=== PATIENT | male | born 1985 | race Caucasian/White ===

== ENCOUNTER 2019-04-09 16:04 | Emergency (ER) | payer OTHER ==
[~2019-04-09] VITALS: Ht 165.1 cm; Wt 82.8 kg
[2019-04-09] MEDS: METOCLOPRAMIDE HCL 10 MG/2 ML VIAL. IVP ONE (16:15)
[2019-04-09] MEDS: IV NORMAL SALINE 1,000ML 1,000 ML IV ONE (16:15)
[2019-04-09] MEDS: KETOROLAC 15 MG/ML VIAL. IVP ONE (16:15)
--- NOTE | 2019-04-09 16:24 | PHYS DOC ---
Past History Past Medical History: Anxiety, Depression, GERD, Kidney Stones, Seizure, Other Additional Past Medical Histor: PTSD Past Surgical History: Other Additional Past Surgical Histo: Right kidney Smoking: Cigarettes Alcohol Use: Rarely Drug Use: None Adult General Chief Complaint Chief Complaint: FLANK PAIN HPI HPI Patient is a 33-year-old male with a past medical history of depression, chronic low back pain, and kidney stones and is presenting to the emergency department with chief complaint of right lower quadrant abdominal pain and right flank pain. Patient states that a couple hours ago he began to have right lower quadrant abdominal pain that then began to radiate to his right lower back. Patient denies any nausea, vomiting, constipation, diarrhea, changes in urine, dysuria, and fevers at home. Patient states that he has a history of kidney stones that were treated with lithotripsy. Patient states that he has not noticed anything that makes the pain better or worse, he has not tried anything at home for the pain. Patient denies any history of cholecystectomy or appendectomy. He denies any trauma. Review of Systems Review of Systems Constitutional: Denies fever or chills Eyes: Denies redness or eye pain HENT: Denies nasal congestion or sore throat Respiratory: Denies cough or shortness of breath Cardiovascular: Denies chest pain or palpitations GI: Denies nausea or vomiting; reports abdominal pain : Denies dysuria or hematuria Musculoskeletal: Denies joint pain, reports back pain Integument: Denies rash or skin lesions Neurologic: Denies headache, focal weakness or sensory changes Complete systems were reviewed and found to be within normal limits, except as documented in this note. Current Medications Current Medications Current Medications Medications (Trade) Dose Ordered Sig/Chayo Start Time Stop Time Status Last Admin Dose Admin Ketorolac Tromethamine (Toradol 15mg Vial) 15 mg 1X ONCE 04/09/19 16:15 04/09/19 16:16 UNV Metoclopramide HCl (Reglan Vial) 10 mg 1X ONCE 04/09/19 16:15 04/09/19 16:16 UNV Sodium Chloride 1,000 ml @ 1,000 mls/hr 1X ONCE 04/09/19 16:15 04/09/19 17:14 UNV Physical Exam Physical Exam Constitutional: Well developed, well nourished, no acute distress, non-toxic appearance HENT: Normocephalic, atraumatic, oropharynx moist Eyes: Conjunctiva normal, no discharge Neck: Normal range of motion, no tenderness, supple Cardiovascular: Heart rate normal, regular rhythm Lungs & Thorax: Bilateral breath sounds clear to auscultation, no wheezing Abdomen: Soft, mild tenderness to palpation in the right lower quadrant, negative heeltap, negative Rovsing's Skin: Warm, dry, no erythema, no rash Back: No midline tenderness, mild tenderness to the right flank palpation Extremities: No tenderness, ROM intact, no edema Neurologic: Alert and oriented X 3, no focal deficits noted Psychologic: Affect normal, judgement normal Current Patient Data Vital Signs Vital Signs Date Time Temp Pulse Resp B/P (MAP) Pulse Ox O2 Delivery O2 Flow Rate FiO2 04/09/19 16:12 98.1 76 16 98 Room Air EKG EKG [] Radiology/Procedures Radiology/Procedures PROCEDURE: CT ABDOMEN PELVIS WO CONTRAST CT Abdomen and Pelvis without contrast History: Right flank pain Technique: Noncontrast CT imaging was performed of the abdomen and pelvis. Multiplanar images are reviewed. Exposure: One or more of the following individualized dose reduction techniques were utilized for this examination: 1. Automated exposure control 2. Adjustment of the mA and/or kV according to patient size 3. Use of iterative reconstruction technique. Comparison: None Findings: There is mild right hydronephrosis is. There is 0.6-0.7 cm calculus at the distal aspect of the right ureteropelvic junction. There is no renal calculus on either side. There is no left hydronephrosis. Accurate evaluation of abdominal visceral organs is limited without intravenous contrast. There is no obvious focal abnormality of the spleen, liver, or pancreas. There is diffuse hepatic steatosis. Gallbladder is present without obvious intraluminal abnormality by CT. There is no adrenal nodularity. Accurate evaluation of bowel is limited without oral contrast. There is no significant free air, free fluid, bowel dilatation. Normal caliber appendix is visualized without adjacent inflammatory-type change. There is mild sigmoid diverticulosis, no associated inflammatory-type change. Impression: 1. There is mild right hydronephrosis, 0.6-0.7 cm calculus in the distal aspect of the right ureteropelvic junction. 2. There is hepatic steatosis. 3. There is mild sigmoid diverticulosis. Electronically signed by: Davi Willams MD (04/09/2019 4:50 PM) [id number] Course & Med Decision Making Course & Med Decision Making Pertinent Labs and Imaging studies reviewed. (See chart for details) Patient is a 33-year-old male with a past medical history of depression, chronic low back pain, and kidney stones this percent emergency department with chief complaint of right lower quadrant abdominal pain and right flank pain. Patient was seen and examined at bedside. Labs and imaging studies were ordered. Pain addressed. Abd/pelvis CT positive for 0.6-0.7cm stone in the right UPJ. Labs within normal limits Flomax and fluids given Discussed options with patient. Shared decision making utilized. Patient offered transfer to facility with urology coverage vs outpatient follow-up. Patient elected to be discharged home and will follow up with PCP and/or urology. Discussed findings and plan with patient and family, who acknowledge understanding and agreement. Dragon Disclaimer Dragon Disclaimer This electronic medical record was generated, in whole or in part, using a voice recognition dictation system. Departure Departure: Impression: Primary Impression: Kidney stone on right side Disposition: HOME, SELF-CARE Condition: STABLE Referrals: PCP,CHRIS (PCP) Patient Instructions: Kidney Stones, [id number] Scripts Tamsulosin Hcl (FLOMAX) 0.4 Mg Cap.er.24h 0.4 MG PO DAILY for Pain, #5 CAP.SR Prov: AMOR VALDIVIA DO 04/09/19 Hydrocodone Bit/Acetaminophen (HYDROCODONE-APAP 5-325 ) 1 Each Tablet 0.5-1 TAB PO PRN Q6HRS PRN for PAIN, #14 TAB 0 Refills Prov: AMOR VALDIVIA DO 04/09/19 Ondansetron (ONDANSETRON ODT) 4 Mg Tab.rapdis 1 TAB PO PRN Q6-8HRS PRN for NAUSEA, #16 TAB Prov: AMOR VALDIVIA DO 04/09/19 AMOR VALDIVIA DO Apr 09, 2019 16:24
[2019-04-09 16:40] LABS: BASO % 1 % (0-3); EOS # 0.2 x10^3/uL (0.0-0.7); EOS % 3 % (0-3); HEMATOCRIT 50.4 % (39.0-53.0); HEMOGLOBIN 17.3 g/dL (13.0-17.5); LYMPH # 1.7 x10^3/uL (1.0-4.8); LYMPH % 23 % (24-48); MEAN CORPUSCULAR HEMOGLOBIN 31 pg (25-35); MEAN CORPUSCULAR HGB CONC 34 g/dL (31-37); MEAN CORPUSCULAR VOLUME 91 fL (79-100); MONO # 0.7 x10^3/uL (0.0-1.1); MONO % 9 % (0-9); NEUT # 4.6 x10^3uL (1.8-7.7); NEUT % 64 % (31-73); PLATELET COUNT 254 x10^3/uL (140-400); RED BLOOD COUNT 5.53 x10^6/uL (4.30-5.70); RED CELL DISTRIBUTION WIDTH 13.3 % (11.5-14.5); WHITE BLOOD COUNT 7.2 x10^3/uL (4.0-11.0)
[2019-04-09 16:48] LABS: CALCIUM 8.7 mg/dL (8.5-10.1); CREATININE 0.8 mg/dL (0.7-1.3); GFR 112.8; POTASSIUM 4.6 mmol/L (3.5-5.1)
[2019-04-09 16:49] LABS: BILIRUBIN,URINE NEG (NEG); CLARITY,URINE CLEAR; COLOR,URINE YELLOW; GLUCOSE,URINE NEG (NEG)
[2019-04-09 16:50] LABS: BACTERIA,URINE 0 /HPF (0-FEW); HYALINE CASTS, URINE OCC /HPF; NITRITE,URINE NEG (NEG); SQUAMOUS EPITHELIAL CELL,UR OCC /LPF; UROBILINOGEN,URINE 0.2 mg/dL (0.2 mg/dL); WBC,URINE OCC /HPF (0-4)
[2019-04-09 16:53] LABS: ALBUMIN 3.9 g/dL (3.4-5.0); ALBUMIN/GLOBULIN RATIO 1.2 (1.0-1.7); MAGNESIUM 2.1 mg/dL (1.8-2.4); TOTAL BILIRUBIN 0.5 mg/dL (0.2-1.0); TOTAL PROTEIN 7.2 g/dL (6.4-8.2)
--- NOTE | 2019-04-09 16:53 | RAD ---
CT Abdomen and Pelvis without contrast History: Right flank pain Technique: Noncontrast CT imaging was performed of the abdomen and pelvis. Multiplanar images are reviewed. Exposure: One or more of the following individualized dose reduction techniques were utilized for this examination: 1. Automated exposure control 2. Adjustment of the mA and/or kV according to patient size 3. Use of iterative reconstruction technique. Comparison: None Findings: There is mild right hydronephrosis is. There is 0.6-0.7 cm calculus at the distal aspect of the right ureteropelvic junction. There is no renal calculus on either side. There is no left hydronephrosis. Accurate evaluation of abdominal visceral organs is limited without intravenous contrast. There is no obvious focal abnormality of the spleen, liver, or pancreas. There is diffuse hepatic steatosis. Gallbladder is present without obvious intraluminal abnormality by CT. There is no adrenal nodularity. Accurate evaluation of bowel is limited without oral contrast. There is no significant free air, free fluid, bowel dilatation. Normal caliber appendix is visualized without adjacent inflammatory-type change. There is mild sigmoid diverticulosis, no associated inflammatory-type change. Impression: 1. There is mild right hydronephrosis, 0.6-0.7 cm calculus in the distal aspect of the right ureteropelvic junction. 2. There is hepatic steatosis. 3. There is mild sigmoid diverticulosis. Electronically signed by: Davi Willams MD (04/09/2019 4:50 PM) [id number]
[2019-04-09] MEDS ORDERED: TAMS0.4C97 PO (17:08)
[2019-04-09] MEDS ORDERED: ONDA4TAB12 PO (17:08)
[2019-04-09] MEDS ORDERED: HYDR-2155 PO (17:08)
[2019-04-09] MEDS: TAMSULOSIN 0.4 MG CAP.ER.24H. PO ONE (17:15)
[2019-04-09 17:33] VITALS: BP 135/82
== END 2019-04-09 17:32 | disposition home or self-care (01) ==
LOC: ER 16:04
DX: N13.2 Hydronephrosis with renal and ureteral calculous obstruction (principal); F41.9 Anxiety disorder, unspecified; F32.9 Major depressive disorder, single episode, unspecified; K21.9 Gastro-esophageal reflux disease without esophagitis; F43.10 Post-traumatic stress disorder, unspecified; G89.29 Other chronic pain; M54.5 Low back pain; F17.210 Nicotine dependence, cigarettes, uncomplicated; Z87.442 Personal history of urinary calculi
CPT/HCPCS: 36415; 74176; 80053; 81001; 83690; 83735; 85025; 96374; 96375; 99285; J1885; J2765; J7030